=== PATIENT | male | born 1970 | race Caucasian/White ===

== ENCOUNTER 2016-09-27 18:51 | Emergency (ER) | payer SELFPAY ==
[~2016-09-27] VITALS: Ht 185.4 cm; Wt 126.5 kg
[~2016-09-27 18:51] MED LIST: AZIT250T5 PO; PRCD5U PO; PRED20TA PO
--- OUTSIDE RECORDS SUMMARY | 2016-09-27 18:55 | XMS REPORT | Continuity of Care Document ---
Author Author [facility] Address Unknown Phone Unavailable Allergies Medications Problems Procedures Results Encounters ACCT No. Visit Date/Time Discharge Status Pt. Type Provider Facility Loc./Unit Complaint [id number] 07/28/2013 21:20:00 2013 23:53:00 [facility] Emergency
--- OUTSIDE RECORDS SUMMARY | 2016-09-27 18:57 | XMS REPORT | Continuity of Care Document ---
Author Author [facility] Address Unknown Phone Unavailable Allergies Medications Problems Procedures Results Encounters ACCT No. Visit Date/Time Discharge Status Pt. Type Provider Facility Loc./Unit Complaint [id number] 07/28/2013 21:20:00 2013 23:53:00 [facility] Emergency
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
[2016-09-27 19:32] LABS: BILIRUBIN,URINE Negative (Negative); CLARITY,URINE Clear; COLOR,URINE Yellow; GLUCOSE, URINE (UA) Negative (Negative); LEUKOCYTE ESTERASE ,URINE Negative (Negative); UROBILINOGEN,URINE 0.2 mg/dL (0.2-1.0)
[2016-09-27 19:44] LABS: AMPHETAMINE SCREEN, URINE Negative (Negative); CANNABINOID SCREEN, URINE Negative (Negative); METHAMPHETAMINE SCREEN URINE S NEGATIVE (NEGATIVE); OPIATE SCREEN URINE Negative (Negative); PROPOXYPHENE STAT NEGATIVE (NEGATIVE)
[2016-09-27] MEDS ORDERED: ALPRAZolam 0.25 MG (XANAX) TAB PO ONE (20:00)
--- NOTE | 2016-09-27 20:28 | NUR ---
CALL [facility] TO REQUEST A SCREEN. EXCHANGE SAID THAT MARS WILL CALL BACK.
--- NOTE | 2016-09-27 21:25 | NUR ---
PT TALKING TO [facility] FROM [facility].
--- NOTE | 2016-09-27 22:59 | NUR ---
PT SIGNED A SAFETY AGREEMENT AFTER LINDY ALMAZAN WENT OVER IT WITH HIM. PT'S PARENTS WILL COME TO PICK HIM UP. PT WILL BE DC'D HOME WITH SCRIPT AND F/U INFORMATION.
[2016-09-27 23:20] VITALS: BP 116/86
== END 2016-09-27 23:21 | disposition home or self-care (01) ==
LOC: ED 18:54
DX: F32.9 Major depressive disorder, single episode, unspecified (principal)
CPT/HCPCS: 80307; 81003; 99283